=== PATIENT | female | born 1995 | race Two or more races ===

== ENCOUNTER → 2020-05-27 17:26 | Outpatient (CLI) | payer OTHER, SELFPAY ==
[2020-05-27 18:27] LABS: HCG,Quantitative 48 mIU/ml (0-5.42)
== END ==
PROVIDERS: Visit Provider Obstetrics & Gynecology
DX: Z32.00 Encounter for pregnancy test, result unknown (principal)
CPT/HCPCS: 36415; 84702

== ENCOUNTER → 2020-08-13 11:25 | Outpatient (CLI) | payer OTHER, SELFPAY ==
[2020-08-13 12:21] LABS: HCG,Quantitative 785 mIU/ml (0-5.42)
== END ==
PROVIDERS: Visit Provider Obstetrics & Gynecology
DX: Z32.00 Encounter for pregnancy test, result unknown (principal)
CPT/HCPCS: 36415; 84702

== ENCOUNTER → 2020-08-15 10:06 | Outpatient (CLI) | payer OTHER, SELFPAY ==
[2020-08-15 11:16] LABS: HCG,Quantitative 1880 mIU/ml (0-5.42)
== END ==
PROVIDERS: Visit Provider Obstetrics & Gynecology
DX: Z34.90 Encounter for supervision of normal pregnancy, unspecified, unspecified trimester (principal)
CPT/HCPCS: 36415; 84702

== ENCOUNTER → 2020-08-23 15:18 | Outpatient (CLI) | payer OTHER, SELFPAY ==
--- NOTE | 2020-08-23 15:23 | US_ITS ---
PROCEDURE: US OB <= 14 WEEKS FETUS CLINICAL INDICATION: dates Early Ob ultrasound, evaluate for dates COMPARISON: No exams were available for comparison FINDINGS: There is a intrauterine gestational sac which measures 13 by 15 mm. No pole or yolk sac apparent. There is a 2 cm left corpus luteum cyst. No cul-de-sac fluid apparent. IMPRESSION: Empty gestational sac. No pole identified. Cannot confirm viability. Please correlate with beta HCG and follow-up ultrasound Dictated by: Enrique Perez MD 08/23/2020 16:36 Enrique Perez MD in [facility] 08/23/2020 16:36
== END ==
LOC: RAD 15:22
PROVIDERS: PCP Family Medicine; Visit Provider Obstetrics & Gynecology
DX: Z34.90 Encounter for supervision of normal pregnancy, unspecified, unspecified trimester (principal)
CPT/HCPCS: 76801

== ENCOUNTER → 2020-08-28 17:17 | Outpatient (CLI) | payer OTHER, SELFPAY | LOC: LAB 17:19 | PROVIDERS: Visit Provider Obstetrics & Gynecology | DX: Z34.90 Encounter for supervision of normal pregnancy, unspecified, unspecified trimester (principal) | CPT/HCPCS: 36415; 84702 ==

== ENCOUNTER → 2020-09-03 14:38 | Outpatient (CLI) | payer BC, SELFPAY ==
--- NOTE | 2020-09-03 14:42 | US_ITS ---
PROCEDURE: US OB TRANSVAGINAL CLINICAL INDICATION: Dates COMPARISON: US US OB <= 14 WEEKS FETUS from 08/23/2020 FINDINGS: An intrauterine gestational sac is present with a pole with a crown-rump length of 0.22cm correlating to gestational age of 6weeks 1day. No cardiac activity evident at this time. It could be too early to see cardiac activity. Cannot confirm viability however, a yolk sac and pole has developed since the previous exam. There is a 2 cm left corpus luteum cyst. IMPRESSION: Gestational sac with pole now visible but no cardiac activity. Continued follow-up suggested. Estimated due date by Ultrasound is 04/28/2021 Dictated by: Enrique Perez MD 09/03/2020 19:35 Enrique Perez MD in [facility] 09/03/2020 19:35
== END ==
LOC: RAD 14:40
PROVIDERS: PCP Family Medicine; Visit Provider Obstetrics & Gynecology
DX: Z34.90 Encounter for supervision of normal pregnancy, unspecified, unspecified trimester (principal)
CPT/HCPCS: 76817

== ENCOUNTER 2020-10-07 13:35 | Emergency (ER) | payer BC, MEDICAID, SELFPAY ==
[2020-10-07 13:37] VITALS: BP 125/52; PULSE 64; RESP 16; TEMP 36.6; O2SAT 98; BMI 30.1
[2020-10-07 14:01] LABS: Basophils % 0.3 % (0.1-2.0); Eosinophils # 0.1 K/mm3 (0.0-0.4); Hematocrit 41.5 % (37.0-47.0); Hemoglobin 13.4 g/dL (12.2-16.2); Lymphocytes # 1.6 K/mm3 (0.7-4.5); Lymphocytes % 21.9 % (10-50); Mean Corpuscular HGB Conc 32.3 g/dL (31.8-35.4); Mean Corpuscular Hemoglobin 25.4 pg (27.0-31.2); Mean Corpuscular Volume 78.6 fl (81-99); Mean Platelet Volume 8.5 fl (7.4-10.4); Monocytes # 0.3 K/mm3 (0.1-1.0); Monocytes % 4.2 % (1.7-9.3); Neutrophils # 5.3 K/mm3 (1.8-7.8); Neutrophils % 72.7 % (37.0-80.0); Platelet Count 197 K/mm3 (142-424); Red Blood Count 5.28 M/mm3 (4.20-5.40); Red Cell Distribution Width 13.8 % (11.5-17.5); White Blood Count 7.2 K/mm3 (4.8-10.8)
[2020-10-07 14:08] LABS: Alanine Aminotransferase 17 U/L (12-78); Albumin Level 4.9 g/dl (3.5-5.0); Albumin/Globulin Ratio 1.4 (1.1-1.8); Alkaline Phosphatase 56 U/L (38-126); Anion Gap 12.5 mEq/L (5-15); Aspartate Amino Transferase 33 U/L (14-36); Bilirubin,Total 0.3 mg/dl (0.2-1.3); Blood Urea Nitrogen 7 mg/dl (7-17); Carbon Dioxide 26 mmol/L (22.0-30.0); Chloride 104 mmol/L (98-107); Creatinine Clearance Estimated 178 mL/min (50-200); Estimated Glomerular Filt Rate 124 ml/min (>60); GFR (African American) 150 ML/MIN (>60); Globulin 3.5 g/dL (1.3-3.2); Glucose 104 mg/dl (74-100); Potassium 3.5 mmoL/L (3.5-5.1); Sodium 139 mmol/L (136-145); Total Protein,Serum 8.4 g/dl (6.3-8.2)
--- NOTE | 2020-10-07 14:38 | US_ITS ---
PROCEDURE: US TRANSVAGINAL CLINICAL INDICATION: bleeding [id number] susp spontaneous 09/10 COMPARISON: US US OB TRANSVAGINAL from 09/03/2020 FINDINGS: UTERUS: 10cm x 6cmx 5cm LEFT OVARY: [id number] with a volume of 7.7ml. RIGHT OVARY: [id number] with a volume of 10.1ml. The uterus is enlarged. Anechoic areas present in the fundus of the uterus containing some internal echoes. Cannot exclude the possibility of retained products of conception. The adnexa are unremarkable. No cul-de-sac fluid evident. The anechoic region in the uterus measures approximately 2 x 2 x 0.8 cm. IMPRESSION: Anechoic area in the fundus of the uterus with some internal echoes and questionable septation which could be due to retained products of conception. Dictated by: Enrique Perez MD 10/07/2020 16:11 Enrique Perez MD in [facility] 10/07/2020 16:11
[2020-10-07 15:01] LABS: Microscopic, Urine URINE MICROSCOPIC (MICROSCOPIC)
[2020-10-07 15:12] LABS: Appearance,Urine CLEAR (Clear); Bilirubin,Urine Negative (Negative); Blood, Urine 3+ (Negative); Color,Urine YELLOW (Yellow); Glucose,Urine (UA) Negative (Negative); Ketones,Urine Negative (Negative); Leukocyte Esterase,Urine Negative (Negative); Nitrate,Urine Negative (Negative); PH,Urine 6.5 (5.0-8.5); Protein,Urine Negative (Negative); Specific Gravity, Urine 1.025 (1.005-1.030); Urobilinogen,Urine 0.2 EU/dl (0.2)
[2020-10-07 15:20] LABS: Urine Pregnancy, HCG Qual. Positive (Negative)
[2020-10-07 15:21] LABS: HCG,Quantitative 419 mIU/ml (0-5.42)
[2020-10-07 15:41] LABS: Bacteria,Urine 1+ /lpf; WBC,Urine 50-100 #/hpf (0-3)
--- NOTE | 2020-10-07 16:15 | HMH.EDUROGF ---
ED Disposition Clinical Impression: Missed with demise before 20 completed weeks of gestation, Vaginal bleeding Disposition: Home, Self-Care Condition on Discharge: Good Instructions: DI for Vaginal Bleeding, DI for Miscarriage Additional Instructions: Follow up with Dr. Stevenson in clinic tomorrow at 10:30 AM and return to the ED for any new or worsening symptoms. Referrals: Lawrence Hernandez [Primary Care Provider] - Time of Disposition: 17:01 - Critical Care Critical Care Time: No Attestation: On 10/07/20, the high probability of a clinically significant, sudden or life threatening deterioration of the following system(s) required my full and direct attention, intervention and personal management. The time I documented below is in addition to time spent performing reported procedures but includes the following listed in this critical care notation. Medical Decision Making - Medical Records Medical records reviewed: Yes: I reviewed the patient's medical records. - Aakash Inquiry Pt receiving controlled substance: No Vital Signs: 10/07/20 13:37 Temperature 98 F Temperature Source Oral Pulse Rate [Radial] 64 Respiratory Rate 16 Blood Pressure [Right Arm] 125/52 L Blood Pressure Mean [Right Arm] 76 Blood Pressure Position [Right Arm] Sitting 02 Sat by Pulse Oximetry 98 Oxygen Delivery Method Room Air - Lab Data Lab Results 10/07/20 13:52: WBC 7.2, RBC 5.28, Hgb 13.4, Hct 41.5, MCV 78.6 L, MCH 25.4 L, MCHC 32.3, RDW 13.8, Plt Count 197, MPV 8.5, Neut % (Auto) 72.7, Lymph % (Auto) 21.9, [place] % (Auto) 4.2, Eos % (Auto) 1.0, Baso % (Auto) 0.3, Neut # (Auto) 5.3, Lymph # (Auto) 1.6, [place] # (Auto) 0.3, Eos # (Auto) 0.1, Baso # (Auto) 0.0 10/07/20 13:52: Sodium 139, Potassium 3.5, Chloride 104, Carbon Dioxide 26, Anion Gap 12.5, BUN 7, Creatinine 0.60, Estimated Creat Clear 178, Estimated GFR 124, Est GFR ( Amer) 150, Glucose 104 H, Calcium 10.0, Total Bilirubin 0.3, AST 33, ALT 17, Alkaline Phosphatase 56, Total Protein 8.4 H, Albumin 4.9, Globulin 3.5 H, Albumin/Globulin Ratio 1.4 10/07/20 13:52: HCG, Quant 419 H 10/07/20 14:50: Urine Color Yellow, Urine Appearance Clear, Urine pH 6.5, Ur Specific [place] 1.025, Urine Protein Negative, Urine Glucose (UA) Negative, Urine Ketones Negative, Urine Blood 3+, Urine Nitrate Negative, Urine Bilirubin Negative, Urine Urobilinogen 0.2, Ur Leukocyte Esterase Negative, Urine RBC 3-5, Urine WBC 50-100, Ur Squamous Epith Cells 5-10, Urine Bacteria 1+ 10/07/20 14:50: Urine HCG, Qual Positive 10/07/20 14:50: Blood Type A Positive, Antibody Screen Negative Result diagrams: 10/07/20 13:52 10/07/20 13:52 Orders (Tests/Meds): ED MEDICATIONS Discontinued Medications Generic Name Dose Route Start Last Admin Trade Name Freq PRN Reason Stop Dose Admin Rho Immune Globulin 1,500 unit 10/07/20 16:43 Rho(D) Immune Globulin 1,500 Unit Syringe IM 10/07/20 16:44 ONCE ONE ORDERS Category Date Time Status Urine Culture Stat Micro 10/07/20 14:50 Received Medical Decision Narrative: 25-year-old female who presents with intermittent vaginal bleeding pretty much daily since a suspected miscarriage on 09/10. She is having intermittent cramping but no other abdominal pain has not had fever chills or body aches is well-appearing and nontoxic. Beta-hCG is elevated to 419 and she is Rh- she will be given RhoGam. Pelvic exam demonstrates a closed cervical os with clot mild mild bleeding and evidence of fibrous tissue. Ultrasound demonstrates no adnexal abnormalities but does show a fluid collection in the uterus. Remainder of the labs are within normal limits. Patient will be consulted OB for evaluation for possible D&C versus outpatient management. Pt will be followed with Dr. Stevenson tomorrow at 10:30. US concerning for retained products of conception. Pt well appearing and stable on discharge. Female Urogenital HPI - General Chief complaint: Vagin
--- NOTE | 2020-10-07 16:39 | PC.NURSE ---
dR Matti PEDERSON.
--- NOTE | 2020-10-07 16:52 | PC.NURSE ---
Dr brooks returned call
--- NOTE | 2020-10-07 17:24 | PC.NURSE ---
Per lab pt does not need the rogam shot. Pt is A+
[2020-10-07 17:27] VITALS: BP 156/78; PULSE 78; RESP 16; TEMP 36.6; O2SAT 98
== END 2020-10-07 17:28 | disposition home or self-care (01) ==
PROVIDERS: Emergency Provider Student in an Organized Health Care Education/Training Program; PCP Family Medicine
DX: O02.1 Missed abortion (principal)
CPT/HCPCS: 36415; 76830; 80053; 81001; 81025; 84702; 85025; 86850; 87086; 99283

== ENCOUNTER → 2020-10-09 15:50 | Outpatient (CLI) | payer BC, MEDICAID, SELFPAY ==
[2020-10-09 17:47] LABS: HCG,Quantitative 275 mIU/ml (0-5.42)
== END ==
PROVIDERS: Visit Provider Obstetrics & Gynecology
DX: O02.1 Missed abortion (principal)
CPT/HCPCS: 36415; 84702

== ENCOUNTER → 2020-12-09 10:21 | Outpatient (CLI) | payer BC, SELFPAY ==
[2020-12-09 11:26] LABS: HCG,Quantitative 25 mIU/ml (0-5.42)
== END ==
PROVIDERS: Visit Provider Obstetrics & Gynecology
DX: Z32.01 Encounter for pregnancy test, result positive (principal)
CPT/HCPCS: 36415; 84702

== ENCOUNTER → 2020-12-18 12:10 | Outpatient (CLI) | payer BC, SELFPAY ==
[2020-12-18 12:51] LABS: Basophils # 0.1 K/mm3 (0-0.2); Basophils % 0.9 % (0.1-2.0); Eosinophils # 0.1 K/mm3 (0.0-0.4); Hematocrit 39.7 % (37.0-47.0); Hemoglobin 13.5 g/dL (12.2-16.2); Lymphocytes # 1.7 K/mm3 (0.7-4.5); Lymphocytes % 31.4 % (10-50); Mean Corpuscular Hemoglobin 25.4 pg (27.0-31.2); Mean Corpuscular Volume 74.8 fl (81-99); Mean Platelet Volume 8.8 fl (7.4-10.4); Monocytes # 0.3 K/mm3 (0.1-1.0); Monocytes % 5.9 % (1.7-9.3); Neutrophils # 3.2 K/mm3 (1.8-7.8); Neutrophils % 59.8 % (37.0-80.0); Platelet Count 204 K/mm3 (142-424); Red Blood Count 5.31 M/mm3 (4.20-5.40); White Blood Count 5.3 K/mm3 (4.8-10.8)
[2020-12-18 13:52] LABS: HCG,Quantitative 12 mIU/ml (0-5.42)
== END ==
PROVIDERS: Visit Provider Obstetrics & Gynecology
DX: Z20.822 Contact with and (suspected) exposure to COVID-19 (principal)
CPT/HCPCS: 36415; 84702; 85025; 85461; J2790; U0003

== ENCOUNTER → 2020-12-19 10:07 | Outpatient (CLI) | payer BC, SELFPAY ==
--- NOTE | 2020-12-19 10:10 | US_ITS ---
PROCEDURE: US OB TRANSVAGINAL CLINICAL INDICATION: Missed Decreasing beta HCGs COMPARISON: US US OB TRANSVAGINAL from 09/03/2020 US US TRANSVAGINAL from 10/07/2020 FINDINGS: There is fluid present within the endometrial canal. No yolk sac or pole is identified. The endometrium is upper limits of normal measuring 10 mm in total thickness without the thickness of the fluid considered. Uterus is otherwise unremarkable. The left ovary has a polycystic ovarian appearance measuring 2.7 x 2.6 cm. There is a simple appearing cyst of the right ovary measuring 3 x 2.7 cm. No cul-de-sac fluid is evident. IMPRESSION: No intrauterine apparent. Fluid is present within the endometrium with no evidence of yolk sac or pole. The fluid within the endometrial cavity could be related to a gestational sac however it does not have a normal appearance. Blighted ovum or missed miscarriage is a consideration. Please correlate with patient's beta HCG levels. 3 cm right ovarian cyst with polycystic appearance of the left ovary Dictated by: Enrique Perez MD 12/19/2020 11:37 Enrique Perez MD in [place] 12/19/2020 11:37
== END ==
PROVIDERS: PCP Family Medicine; Visit Provider Obstetrics & Gynecology
DX: O02.1 Missed abortion (principal)
CPT/HCPCS: 76817

== ENCOUNTER 2020-12-20 10:01 | Day surgery (SDC) | payer BC, SELFPAY ==
[2020-12-11 14:13] VITALS: BMI 29.4
[2020-12-20] VITALS (9 sets, daily range): BP systolic 104–148; BP diastolic 49–82; PULSE 61–78; RESP 14–18; TEMP 36.2–36.9; O2SAT 96–100
--- NOTE | 2020-12-20 12:43 | HMH.OPNOTE ---
Date of procedure: 12/20/20 Pre-op Diagnosis:: Incomplete Post-op Diagnosis:: same Procedure performed:: Suction Dilation and Curettage Surgeon:: Gena Stevenson MD SALES OFFICER:: Bill Mtz Anesthesia: GETA Estimated blood loss (mL): 25 Operative findings:: small amount of retained tissue in uterus Operative note:: The patient was taken to the OR and general anesthesia administered without difficulty. She was prepped and draped in lithotomy position. Vivas retractors were used to visualize the cervix and a single tooth tenaculum placed on the anterior lip of the cervix. The cervix was passively dilated until it could accomodate the suction curette. A size # 7 curved curette was used to evacuate the contents of the uterus. A small amount of products of conception were evacuated with the suction curette. Sharp curettage was used to ensure that no products remained within the uterine cavity. All instruments were then removed from the patients vagina, she was taken out of lithotomy position, awakened from anesthesia and taken to the PACU in stable condition. EBL: 25cc Condition: stable Disposition: PACU Specimens:: products of conception Complications:: none
== END 2020-12-20 13:07 | disposition home or self-care (01) ==
PROVIDERS: PCP Family Medicine; Visit Provider Obstetrics & Gynecology
PROC: (CPT 59812; principal; 2020-12-20 11:00)
DX: O03.4 Incomplete spontaneous abortion without complication (principal)
CPT/HCPCS: 59812; 96374; J2405

== ENCOUNTER → 2022-05-21 11:45 | Outpatient (CLI) | payer BC, SELFPAY ==
[2022-05-21 16:22] LABS: Amphetamine/Metha Screen,Urine Negative ng/ml (<1000)
[2022-05-21 16:23] LABS: Barbiturates Screen,Urine Negative ng/ml (<200)
[2022-05-21 16:24] LABS: Benzodiazepines Screen,Urine Negative ng/ml (<200); Cannabinoid Screen,Urine Positive ng/ml (<50)
[2022-05-21 16:25] LABS: Cocaine Screen,Urine Negative ng/ml (<300)
[2022-05-21 16:26] LABS: Methadone Screen,Urine Negative ng/ml (<300)
[2022-05-21 16:35] LABS: Opiate Screen,Urine Negative ng/ml (<300)
[2022-05-21 16:36] LABS: Phencyclidine Screen,Urine Negative ng/ml (<25)
== END ==
PROVIDERS: Visit Provider Obstetrics & Gynecology
DX: Z34.90 Encounter for supervision of normal pregnancy, unspecified, unspecified trimester (principal)
CPT/HCPCS: 80305; 87086

== ENCOUNTER → 2022-06-30 11:25 | Outpatient (CLI) | payer MEDICAID, SELFPAY ==
[2022-06-30 12:17] LABS: Basophils % 0.4 % (0.1-2.0); Eosinophils # 0.1 K/mm3 (0.0-0.4); Eosinophils % 1.1 % (0.1-12.0); Hematocrit 35.7 % (37.0-47.0); Lymphocytes # 1.4 K/mm3 (0.7-4.5); Lymphocytes % 13.7 % (10-50); Mean Corpuscular HGB Conc 33.7 g/dL (31.8-35.4); Mean Corpuscular Volume 74.2 fl (81-99); Mean Platelet Volume 8.6 fl (7.4-10.4); Monocytes # 0.5 K/mm3 (0.1-1.0); Monocytes % 4.5 % (1.7-9.3); Neutrophils # 8.4 K/mm3 (1.8-7.8); Neutrophils % 80.3 % (37.0-80.0); Platelet Count 252 K/mm3 (142-424); Red Blood Count 4.81 M/mm3 (4.20-5.40); Red Cell Distribution Width 14.9 % (11.5-17.5); White Blood Count 10.5 K/mm3 (4.8-10.8)
[2022-07-01 10:37] LABS: HIV Screen 4th Generation wRfx Non Reactive (Non Reactive); Rubella Antibodies, IgG 2.43 index (Immune >0.99)
[2022-07-04 22:23] LABS: Hepatitis B Surface Antigen NEGATIVE; Hepatitis C Antibody <0.1
[2022-07-04 22:24] LABS: Rapid Plasma Reagin Ab Titer NON REACTIVE
== END ==
PROVIDERS: PCP Family Medicine; Visit Provider Obstetrics & Gynecology
DX: Z34.90 Encounter for supervision of normal pregnancy, unspecified, unspecified trimester (principal)
CPT/HCPCS: 36415; 85025; 86593; 86703; 86762; 86850; 87340; 87380; G0432

== ENCOUNTER → 2022-08-24 14:41 | Outpatient (CLI) | payer MEDICAID, SELFPAY ==
--- NOTE | 2022-08-24 14:45 | US_ITS ---
FINAL REPORT CLINICAL HISTORY: 20 week anatomy scan FINDINGS: There is a single live intrauterine gestation. Presentation is breech. The cervix is closed and measures 3.9. Placenta is posterior, grade 1. heart rate is 142 beats per minute movement is noted. Three-vessel cord with satisfactory umbilical cord insertion. Four-chamber heart is noted. brain and ventricles are unremarkable. Chest and diaphragm are unremarkable. ABDOMEN: Both kidneys are unremarkable. Stomach is unremarkable. SPINE: No anomalies identified. Both arms and legs noted. AMNIOTIC FLUID: Appropriate amount. MEASUREMENTS: ULTRASOUND AGE: 20 weeks 3 days. GESTATION AGE: 20 weeks 3 days. ESTIMATED WEIGHT: 350 g GROWTH PERCENTILE: 42 % BPD: 4.77 cm corresponding to 20 weeks 3 days. OFD: 6.00 cm corresponding to 20 weeks 3 days. HC: 17.03 cm corresponding to 19 weeks 5 days. AC: 15.38 cm corresponding to 20 weeks 5 days. FL: 3.30 cm corresponding to 20 weeks 3 days. CEREBELLUM: 2.01 cm corresponding to 20 weeks 4 days. HUMERUS: 3.22 cm corresponding to 20 weeks 6 days. HC/AC: 1.11 CI: 80% FL/BPD: 69% FL/AC: 21% IMPRESSION: Single living IUP with an ultrasound age of 20 weeks 3 days. Reviewed, Interpreted and Dictated by Abelardo Raman III, MD Transcribed by Betzy Bueno Authenticated and [facility]
== END ==
PROVIDERS: PCP Family Medicine; Visit Provider Obstetrics & Gynecology
DX: Z34.90 Encounter for supervision of normal pregnancy, unspecified, unspecified trimester (principal); Z3A.20 20 weeks gestation of pregnancy
CPT/HCPCS: 76811

== ENCOUNTER → 2022-10-07 08:26 | Outpatient (CLI) | payer MEDICAID, SELFPAY ==
[2022-10-07 08:44] LABS: Basophils % 0.3 % (0.1-2.0); Eosinophils # 0.1 K/mm3 (0.0-0.4); Eosinophils % 1.1 % (0.1-12.0); Hematocrit 35.4 % (37.0-47.0); Hemoglobin 11.5 g/dL (12.2-16.2); Lymphocytes # 1.5 K/mm3 (0.7-4.5); Lymphocytes % 16.4 % (10-50); Mean Corpuscular HGB Conc 32.6 g/dL (31.8-35.4); Mean Corpuscular Hemoglobin 24.2 pg (27.0-31.2); Mean Corpuscular Volume 74.2 fl (81-99); Mean Platelet Volume 9.2 fl (7.4-10.4); Monocytes # 0.5 K/mm3 (0.1-1.0); Neutrophils # 7.3 K/mm3 (1.8-7.8); Neutrophils % 77.3 % (37.0-80.0); Platelet Count 244 K/mm3 (142-424); Red Blood Count 4.77 M/mm3 (4.20-5.40); Red Cell Distribution Width 14.8 % (11.5-17.5); White Blood Count 9.5 K/mm3 (4.8-10.8)
[2022-10-07 10:19] LABS: Glucose,Fasting 80 mg/dl (74-100)
[2022-10-07 10:41] LABS: Glucose 1 Hour 99 mg/dL (74-100)
== END ==
PROVIDERS: PCP Family Medicine; Visit Provider Obstetrics & Gynecology
DX: Z34.90 Encounter for supervision of normal pregnancy, unspecified, unspecified trimester (principal); Z3A.21 21 weeks gestation of pregnancy
CPT/HCPCS: 36415; 82951; 85025

== ENCOUNTER 2022-10-20 08:50 | Outpatient (CLI) | payer MEDICAID, SELFPAY ==
[2022-10-20 09:11] VITALS: BMI 34.5
[2022-10-20 09:20] VITALS: BP 144/74; PULSE 104; RESP 18; TEMP 36.9; O2SAT 98; BMI 34.5
[2022-10-20 09:36] LABS: Microscopic, Urine URINE MICROSCOPIC (MICROSCOPIC)
[2022-10-20 10:08] LABS: Appearance,Urine CLEAR (Clear); Bilirubin,Urine Negative (Negative); Blood, Urine Negative (Negative); Color,Urine YELLOW (Yellow); Glucose,Urine (UA) Negative (Negative); Ketones,Urine Negative (Negative); Leukocyte Esterase,Urine Negative (Negative); Nitrate,Urine Negative (Negative); PH,Urine 7.5 (5.0-8.5); Protein,Urine Negative (Negative)
[2022-10-20 10:19] LABS: Amphetamine/Metha Screen,Urine Negative ng/ml (<1000); Barbiturates Screen,Urine Negative ng/ml (<200)
[2022-10-20 10:20] LABS: Benzodiazepines Screen,Urine Negative ng/ml (<200)
[2022-10-20 10:23] LABS: Cannabinoid Screen,Urine Negative ng/ml (<50); Cocaine Screen,Urine Negative ng/ml (<300)
[2022-10-20 10:24] LABS: Methadone Screen,Urine Negative ng/ml (<300)
[2022-10-20 10:25] LABS: Opiate Screen,Urine Negative ng/ml (<300); Phencyclidine Screen,Urine Negative ng/ml (<25)
[2022-10-20 10:28] LABS: Bacteria,Urine Trace /lpf; Squamous Epithelial Cell,Urine Occasional #/hpf (0-5)
== END 2022-10-20 10:45 | disposition home or self-care (01) ==
LOC: OBOUT 08:51 → OB 08:51
PROVIDERS: PCP Family Medicine; Visit Provider Nurse Practitioner Obstetrics & Gynecology
DX: O47.03 False labor before 37 completed weeks of gestation, third trimester (principal); Z3A.28 28 weeks gestation of pregnancy
CPT/HCPCS: 59025; 80305; 81001; 87086; G0463

== ENCOUNTER → 2022-11-19 14:03 | Outpatient (CLI) | payer MEDICAID, SELFPAY ==
--- NOTE | 2022-11-19 14:03 | US_ITS ---
PROCEDURE: US OB BIOPHYSICAL PROFILE CLINICAL INDICATION: sga COMPARISON: 20 week anatomical scan. FINDINGS: From her established due date she is 32weeks 6days. The following parameters are obtained: Average ultrasound age is 33weeks 0 days. Estimated due date by ultrasound is 01/07/2023. Estimated weight is 2094 grams, 4 lb 9.87oz. 44percentile. The fetus was initially in the cephalic presentation and then turned to breech presentation towards the end of the exam. heart rate: 147bpm bpm. BPD: 32weeks 3days OFD: 32weeks 3days HC: 32 weeks 5 days AC: 33 weeks 4 days FL: 32 weeks 2 days HC/AC: 1 Cephalic index: 0.79 FL/BPD: 0.75 FL/AC: 0.21 Amniotic fluid index: 16.74cm Qualitative AFV: 2 breathing movements: 2 Gross body movements: 2 Tone: 2 Biophysical profile score: 8 Doppler evaluation of the umbilical artery: SD ratio: 2.78 Resistive index: 0.64 No obvious anomalies evident.Kidneys, three-vessel cord, bladder, stomach appear normal. Placenta: Posterior/fundal, grade 1 Cervix: 3.4 cm IMPRESSION: 1. Fetus initially in the cephalic presentation with change to breech presentation during the exam. The placenta is posterior/fundal grade 1 2. Fetus has shown good interval growth and size is 44 percentile. 3. The fluid is within normal limits. 4. Biophysical profile is 8/8 with good movement and breathing movement seen. 5. SD ratio is normal. 6. Limited anatomical scan appears normal. Dictated by: Matt Sanchez MD 11/20/2022 09:40 Matt Sanchez MD in [place] 11/20/2022 09:40
== END ==
PROVIDERS: PCP Family Medicine; Visit Provider Obstetrics & Gynecology
DX: O36.5990 Maternal care for other known or suspected poor fetal growth, unspecified trimester, not applicable or unspecified (principal); Z3A.32 32 weeks gestation of pregnancy
CPT/HCPCS: 76811; 76819; 76820

== ENCOUNTER 2022-12-05 20:58 | Outpatient (CLI) | payer MEDICAID, SELFPAY ==
[2022-12-05 21:15] VITALS: BP 131/67; PULSE 92; RESP 18; TEMP 36.6; O2SAT 98; BMI 36.5
[2022-12-05 21:48] VITALS: BMI 36.5
[2022-12-05 21:55] LABS: Appearance,Urine CLEAR (Clear); Bilirubin,Urine Negative (Negative); Blood, Urine TRACE-I (Negative); Color,Urine YELLOW (Yellow); Glucose,Urine (UA) Negative (Negative); Ketones,Urine Negative (Negative); Leukocyte Esterase,Urine Negative (Negative); Microscopic, Urine URINE MICROSCOPIC (MICROSCOPIC); Nitrate,Urine Negative (Negative); PH,Urine 7.5 (5.0-8.5); Protein,Urine Negative (Negative); Urobilinogen,Urine 0.2 EU/dl (0.2)
[2022-12-05 22:07] LABS: Barbiturates Screen,Urine Negative ng/ml (<200); Benzodiazepines Screen,Urine Negative ng/ml (<200)
[2022-12-05 22:08] LABS: Amphetamine/Metha Screen,Urine Negative ng/ml (<1000)
[2022-12-05 22:09] LABS: Cannabinoid Screen,Urine Negative ng/ml (<50); Cocaine Screen,Urine Negative ng/ml (<300)
[2022-12-05 22:10] LABS: Methadone Screen,Urine Negative ng/ml (<300)
[2022-12-05 22:11] LABS: Bacteria,Urine 1+ /lpf; Opiate Screen,Urine Negative ng/ml (<300); Phencyclidine Screen,Urine Negative ng/ml (<25); RBC,Urine Occasional #/hpf (0-3)
[2022-12-05 22:25] LABS: Coronavirus 19, PCR Not Detected (NotDetected); Influenza A, PCR Not Detected (NotDetected); Influenza B, PCR Not Detected (NotDetected)
[2022-12-05 22:27] LABS: Basophils % 0.3 % (0.1-2.0); Eosinophils # 0.1 K/mm3 (0.0-0.4); Hematocrit 31.5 % (37.0-47.0); Hemoglobin 10.2 g/dL (12.2-16.2); Lymphocytes # 2.8 K/mm3 (0.7-4.5); Lymphocytes % 21.7 % (10-50); Mean Corpuscular HGB Conc 32.4 g/dL (31.8-35.4); Mean Corpuscular Hemoglobin 21.1 pg (27.0-31.2); Mean Corpuscular Volume 65.1 fl (81-99); Mean Platelet Volume 9.4 fl (7.4-10.4); Monocytes # 0.8 K/mm3 (0.1-1.0); Monocytes % 6.1 % (1.7-9.3); Neutrophils # 9.1 K/mm3 (1.8-7.8); Neutrophils % 70.8 % (37.0-80.0); Platelet Count 242 K/mm3 (142-424); Red Blood Count 4.84 M/mm3 (4.20-5.40); Red Cell Distribution Width 15.4 % (11.5-17.5); White Blood Count 12.8 K/mm3 (4.8-10.8)
[2022-12-05 22:31] LABS: Chloride 103 mmol/L (98-107)
[2022-12-05 22:32] LABS: Potassium 3.6 mmoL/L (3.5-5.1); Sodium 136 mmol/L (136-145)
[2022-12-05 22:34] LABS: Alanine Aminotransferase 13 U/L (12-78); Alkaline Phosphatase 120 U/L (38-126); Aspartate Amino Transferase 31 U/L (14-36); Bilirubin,Total 0.2 mg/dl (0.2-1.3); Blood Urea Nitrogen 9 mg/dl (7-17); Creatinine Clearance Estimated 211 mL/min (50-200); Estimated Glomerular Filt Rate 122 ml/min (>60); GFR (African American) 147 ML/MIN (>60)
[2022-12-05 22:35] LABS: Albumin Level 3.5 g/dl (3.5-5.0); Albumin/Globulin Ratio 0.9 (1.1-1.8); Anion Gap 14.6 mEq/L (5-15); Calcium 8.7 mg/dl (8.4-10.2); Carbon Dioxide 22 mmol/L (22.0-30.0); Glucose 71 mg/dl (74-100); Total Protein,Serum 7.5 g/dl (6.3-8.2)
== END 2022-12-05 23:08 | disposition home or self-care (01) ==
LOC: OBOUT 21:03 → OB 21:04
PROVIDERS: PCP Family Medicine; Visit Provider Nurse Practitioner Obstetrics & Gynecology
DX: O26.893 Other specified pregnancy related conditions, third trimester (principal); Z3A.35 35 weeks gestation of pregnancy; R07.9 Chest pain, unspecified; R51.9 Headache, unspecified; R06.02 Shortness of breath
CPT/HCPCS: 59025; 80053; 80305; 81001; 85025; 87635; 87636; 96365; C9803; G0463; U0003; U0005

== ENCOUNTER → 2022-12-17 10:00 | Outpatient (CLI) | payer MEDICAID, SELFPAY | PROVIDERS: Visit Provider Obstetrics & Gynecology | DX: Z34.93 Encounter for supervision of normal pregnancy, unspecified, third trimester (principal); Z3A.36 36 weeks gestation of pregnancy | CPT/HCPCS: 86403 ==

== ENCOUNTER 2022-12-25 04:56 | Inpatient (IN) | payer MEDICAID, SELFPAY ==
[2022-12-25] VITALS (8 sets, daily range): BP systolic 124–146; BP diastolic 62–93; PULSE 78–93; RESP 14–18; TEMP 36.6–36.8; O2SAT 98–100; BMI 37.0
[2022-12-25 05:56] LABS: Coronavirus 19, PCR Not Detected (NotDetected); Influenza A, PCR Not Detected (NotDetected); Influenza B, PCR Not Detected (NotDetected); Microscopic, Urine URINE MICROSCOPIC (MICROSCOPIC)
[2022-12-25 06:00] LABS: Basophils % 0.3 % (0.1-2.0); Eosinophils # 0.1 K/mm3 (0.0-0.4); Eosinophils % 0.8 % (0.1-12.0); Hematocrit 30.6 % (37.0-47.0); Hemoglobin 9.6 g/dL (12.2-16.2); Lymphocytes # 1.8 K/mm3 (0.7-4.5); Lymphocytes % 18.2 % (10-50); Mean Corpuscular HGB Conc 31.4 g/dL (31.8-35.4); Mean Corpuscular Hemoglobin 20.9 pg (27.0-31.2); Mean Corpuscular Volume 66.4 fl (81-99); Mean Platelet Volume 8.1 fl (7.4-10.4); Monocytes # 0.5 K/mm3 (0.1-1.0); Monocytes % 5.1 % (1.7-9.3); Neutrophils # 7.3 K/mm3 (1.8-7.8); Neutrophils % 75.6 % (37.0-80.0); Platelet Count 207 K/mm3 (142-424); Red Blood Count 4.61 M/mm3 (4.20-5.40); Red Cell Distribution Width 16.5 % (11.5-17.5); White Blood Count 9.7 K/mm3 (4.8-10.8)
[2022-12-25 06:08] LABS: Alanine Aminotransferase 12 U/L (12-78); Albumin Level 3.4 g/dl (3.5-5.0); Albumin/Globulin Ratio 0.9 (1.1-1.8); Alkaline Phosphatase 122 U/L (38-126); Anion Gap 10.2 mEq/L (5-15); Aspartate Amino Transferase 21 U/L (14-36); Blood Urea Nitrogen 13 mg/dl (7-17); Calcium 8.6 mg/dl (8.4-10.2); Carbon Dioxide 22 mmol/L (22.0-30.0); Chloride 109 mmol/L (98-107); Creatinine Clearance Estimated 184 mL/min (50-200); Estimated Glomerular Filt Rate 102 ml/min (>60); GFR (African American) 123 ML/MIN (>60); Globulin 3.6 g/dL (1.3-3.2); Glucose 96 mg/dl (74-100); Potassium 4.2 mmoL/L (3.5-5.1); Sodium 137 mmol/L (136-145)
[2022-12-25 06:12] LABS: Appearance,Urine SL CLOUDY (Clear); Bilirubin,Total 0.1 mg/dl (0.2-1.3); Bilirubin,Urine Negative (Negative); Blood, Urine 1+ (Negative); Color,Urine YELLOW (Yellow); Glucose,Urine (UA) Negative (Negative); Ketones,Urine Negative (Negative); Leukocyte Esterase,Urine 1+ (Negative); Nitrate,Urine Negative (Negative); Protein,Urine TRACE (Negative); Specific Gravity, Urine >= 1.030 (1.005-1.030); Urobilinogen,Urine 0.2 EU/dl (0.2)
[2022-12-25 06:47] LABS: Bacteria,Urine 1+ /lpf
[2022-12-25 07:14] LABS: Barbiturates Screen,Urine Negative ng/ml (<200); Benzodiazepines Screen,Urine Negative ng/ml (<200)
[2022-12-25 07:15] LABS: Amphetamine/Metha Screen,Urine Negative ng/ml (<1000)
[2022-12-25 07:16] LABS: Cannabinoid Screen,Urine Negative ng/ml (<50)
[2022-12-25 07:17] LABS: Cocaine Screen,Urine Negative ng/ml (<300); Methadone Screen,Urine Negative ng/ml (<300)
[2022-12-25 07:18] LABS: Opiate Screen,Urine Negative ng/ml (<300); Phencyclidine Screen,Urine Negative ng/ml (<25)
--- NOTE | 2022-12-25 07:37 | P.PN_ITS ---
[facility] Disclaimer: The information contained in this section may have been updated after the patient was seen, as this information can be updated by other users. Medical History Positive urine drug screen THC Recurrent loss Surgical History Hx of section 02/12/16 Failure to progress, CPD Hx of dilation and curettage Family History Other Diabetes Heart attack Hypertension Social History Smoking Status: Former smoker alcohol intake: never substance use type: denies use and marijuana current occupational status: unemployed Travel in the last 8 weeks: None household members: spouse housing: house current occupational exposures/hazards: No caffeine: Yes [facility] Anesthesia Checklist Patient Identification Patient Identification: Arm Band Structural Data Admitted From: Inpatient Planned Operative Procedure/s: Repeat C/S Consent for Planned Operative Procedure(s) Verified: Yes Verified Documents: Surgical Consent and History and Physical NPO Status Verified Time NPO: 00:00 Additional verifications Anesthesia Reactions: No Hx Blood Transfusions: No Blood Transfusion Reaction: No Airway Assessment C-Spine Mobility Assessed: Yes TMJ Mobility Assessed: Yes Dentition: Good Dentition Neurological Assessment Level of Consciousness: Awake and Alert Anesthesia Plan Anesthesia Risk discussed: Yes Anesthesia Plan: Verified ASA Class: II Anesthesia Type: Spinal (with Bilateral TAP Block)
--- NOTE | 2022-12-25 07:42 | P.CONPHA_ITS ---
Pharmacy Intervention Comments: MEDICATION RECONCILIATION COMPLETED ON PATIENT USING EXTERNAL FILL HISTORY FROM PHARMACY AND LIST FROM SECURITY VEHICLE PATROL OFFICER. -HARVEY MULLINS, BENJAMÍND
--- NOTE | 2022-12-25 07:42 | HMH.PHAINT1 ---
Pharmacy Intervention Comments: MEDICATION RECONCILIATION COMPLETED ON PATIENT USING EXTERNAL FILL HISTORY FROM PHARMACY AND LIST FROM KENO CLERK. -HARVEY MULLINS, BENJAMÍND
--- NOTE | 2022-12-25 07:56 | EXP.HP ---
History of Present Illness *Admission Date: 12/25/22 *Reason for visit:: Scheduled C Section *History of present illness: 27 yo @ 38 0/ scheduled for repeat LTCS OB Hx significant for recurrent loss, and she had a low serum progesterone early in this She was started on vaginal prometrium and aspirin 81mg daily She also has a h/o primary LTCS with previous for failure to progress in labor She expressed a desire for TOLAC for most of this , but after thorough counseling about her potential for success, she decided to schedule repeat LTCS This procedure was moved up to 38 weeks because of polyhydramnios noted at her last visit [facility] Disclaimer: The information contained in this section may have been updated after the patient was seen, as this information can be updated by other users. Medical History Positive urine drug screen THC Recurrent loss Surgical History Hx of section 02/12/16 Failure to progress, CPD Hx of dilation and curettage Family History Other Diabetes Heart attack Hypertension Social History Smoking Status: Former smoker alcohol intake: never substance use type: denies use and marijuana current occupational status: unemployed Travel in the last 8 weeks: None household members: spouse housing: house current occupational exposures/hazards: No caffeine: Yes Review of Systems Constitutional Constitutional: Reports system reviewed and no additional complaints, except as documented and Denies headache(s) ENT Ears, Nose, Mouth, and Throat: Denies headache(s) *Genitourinary Genitourinary: Denies abnormal vaginal bleeding *Neurologic Neurologic: Denies headache(s) and Denies other visual disturbances Meds Home Medications and Allergies Home Medications Medication Instructions Recorded Confirmed Type vits no.130-ferrous fum 1 tab PO DAILY Supplement 10/08/22 12/25/22 History 27 mg iron-folic acid 800 mcg tablet ( Vitamin) hydroxyzine pamoate 25 mg capsule 25 mg PO BIDP PRN anxiety 12/25/22 12/25/22 History (Vistaril) omeprazole magnesium 20 mg 20 mg PO DAILY Acid Reflux 12/25/22 12/25/22 History tablet,delayed release (Prilosec OTC) New Prescriptions to Start Prescriptions: Allergies Allergy/AdvReac Type Severity Reaction Status Date / Time No Known Allergies Allergy Verified 12/17/22 09:24 Exam Data for Last 24 hours Vital signs and Labs for Last 24 Hours: Temp Pulse Resp BP Pulse Ox O2 Del Method 98.3 F 86 18 135/70 98 Room Air 12/25/22 06:19 12/25/22 06:19 12/25/22 06:19 12/25/22 06:19 12/25/22 06:19 12/25/22 06:19 Laboratory Results - last 24 hr 12/25/22 05:40: WBC 9.7, RBC 4.61, Hgb 9.6 L, Hct 30.6 L, MCV 66.4 L, MCH 20.9 L, MCHC 31.4 L, RDW 16.5, Plt Count 207, MPV 8.1, Neut % (Auto) 75.6, Lymph % (Auto) 18.2, [place] % (Auto) 5.1, Eos % (Auto) 0.8, Baso % (Auto) 0.3, Neut # (Auto) 7.3, Lymph # (Auto) 1.8, [place] # (Auto) 0.5, Eos # (Auto) 0.1, Baso # (Auto) 0.0, Sodium 137, Potassium 4.2, Chloride 109 H, Carbon Dioxide 22, Anion Gap 10.2, BUN 13, Creatinine 0.70, Estimated Creat Clear 184, Estimated GFR 102, Est GFR ( Amer) 123, Glucose 96, Calcium 8.6, Total Bilirubin 0.1 L, AST 21, ALT 12, Alkaline Phosphatase 122, Total Protein 7.0, Albumin 3.4 L, Globulin 3.6 H, Albumin/Globulin Ratio 0.9 L, Urine Color Yellow, Urine Appearance Sl cloudy, Urine pH 6.0, Ur Specific [place] >= 1.030, Urine Protein Trace, Urine Glucose (UA) Negative, Urine Ketones Negative, Urine Blood 1+, Urine Nitrate Negative, Urine Bilirubin Negative, Urine Urobilinogen 0.2, Ur Leukocyte Esterase 1+ A, Urine RBC 5-10, Urine WBC 10-20, Ur Squamous
[2022-12-25 08:44] LABS: Cord Blood PH 7.35 (7.35-7.45)
--- NOTE | 2022-12-25 10:50 | SUR.PHASEI ---
Pt did well in PACU. Fundal massage done q10min, fundus noted to be firm and at umbilicus. Denies pain. TAP block performed by Li Mina CRNA, time out performed. Procedure start to stop [id number], pt tolerated well. VSS. QBL noted to be 990.6. Second IV had been started in RAC in case of need d/t greater blood loss. Detailed report called to Chris Robertson RN. Pt transported via bed to room 277 and left in care of primary nurse. Bed locked and in lowest position. Call yari w/in reach.
--- NOTE | 2022-12-25 11:18 | P.OP_ITS ---
Date of procedure: 12/25/22 Pre-op Diagnosis:: 1. 38 0/7 2. Previous C Section 3. Polyhydramnios Post-op Diagnosis:: Same Procedure performed:: LTCS Surgeon:: Gena Stevenson MD General Office Assistant(s):: Craig Aguilera MD EMERGENCY MEDICAL TECH:: Lucien Stuartavani Anesthesia: spinal Estimated blood loss (mL): 600 Operative findings:: Moderate peritoneal adhesions vigorous female in vertex presentation; nuchal cord x 1 clear amniotic fluid Operative note:: The patient was taken to the OR and spinal was administered without difficulty. She was prepped and draped in normal sterile fashion. A pfannenstiel skin incision was made with the scalpel and carried down to the fascia. The fascia was incised in the midline and sharply dissected off the rectus muscles. The muscles were in the midline and the peritoneum was entered sharply and extended bluntly. Peritoneal adhesions to the anterior uterus were sharply and bluntly dissected before the retractor could be placed. Omental adhesions to the uterus were also sharply dissected without complication. The Jose-O self retaining retractor was then placed in the abdomen and a bladder flap was created. The uterus was incised in the lower uterine segment in a transverse fashion and extended bluntly. Amniotomy was performed and copious clear fluid was noted. The infant was delivered in controlled fashion, without complication or shoulder dystocia. A single nuchal cord was reduced after delivery of the head. The was vigorous at and handed to awaiting quality compliance coordinator and nursing staff for evaluation after the umbilical cord was clamped and cut. Cord blood was collected and a cord segment was preserved. The placenta was manually extracted and noted to be intact. The uterus was repaired with 0-vicryl in a running/locked fashion. The abdomen and pelvis were irrigated with sterile water. Venkata was placed over the lower uterine segment and above the hysterotomy repair as hemostasis in the area of adhsion dissection. The peritoneum was closed with 2-0 vicryl in a running fashion. The fascia was closed with #1 vicryl in a running fashion. The subcutaneous fat was closed with 2-0 vicryl in an interrupted fashion. The skin was closed with absorbable chaim. The patient tolerated the procedure well. Sponge, lap, needle and instrument counts were correct x 2. EBL: 600cc. She was taken to PACU awake and in stable condition. Condition: stable Disposition: PACU Specimens:: Placenta, cord blood Complications:: None
--- NOTE | 2022-12-25 12:38 | SUR.OPER ---
0836- viable infant female born at this time 0847- Jaqueline, RT reported cord pH of 7.35. Relayed to VIK IgnacioO
--- NOTE | 2022-12-25 12:41 | EXP.ANES.I ---
[facility] Anesthesia Record Part I Anesthesia Record I Intake, IV Amount: 2,000 Estimated blood loss (mL): 600 Urine output (mL): 800 Blood Products used (#): none Blood Pressure: 146/76 SaO2: 100 Pulse Rate: 83 Respiratory Rate: 16 Temperature: 98.2 F Patient is:: Awake and Stable Stable to PACU at:: 09:50
--- NOTE | 2022-12-25 13:51 | SW/DCPLANNER ---
Addendum entered by Tiffani Machado 12/29/22 09:53: Infant cord screen is NEGATIVE. Original Note: I received referral on this patient regarding: THC use during . Patient tested positive on 05/21/23 and 10/08/22. Patient was negative on 12/18/22 and admission on 12/25/22. urine is also negative. Patient delivered female (Juanita Dewitt) on 12/25/22. 's father (Emil Dewitt 04/12/94) was present at the time of my visit. Patient, Emil, and other child (Jeff Dewitt 02/12/16) will reside at [address] [place] [address]. Patient's contact number is [phone]. No past Social Service involvement per patient. Patient is currently established with [facility] and is not interested in HANDS. Patient stated that she has the following items at home: crib, carseat, clothing, diapers and will be . Patient is expected to discharge home on 12/27/22 pending no setbacks. Per OB nursing staff (Mar[place]) patient is appropriate. Patient has no further needs at this time.
--- NOTE | 2022-12-25 14:16 | P.PNANES_ITS ---
[facility] Anesthesia Record Part II Anesthesia Record Part II Discharge Time: 10:20 Destination: Obstetric PACU nurse assessment reviewed?: Yes Patient Condition:: Good Anesthesia Complications:: None Swallowing reflex intact?: Yes Cyanosis?: No Blood Pressure: 142/93 Pulse Rate: 84 Temperature: 97.9 F Mental Status: Alert & Oriented Pain level:: 0 Nausea and/or vomitting:: None Intake, IV Amount: 0
[2022-12-26 03:58] VITALS: BP 132/75; PULSE 95; RESP 18; TEMP 36.6; O2SAT 100
[2022-12-26 07:28] LABS: Hematocrit 26.6 % (37.0-47.0); Hemoglobin 8.4 g/dL (12.2-16.2)
--- NOTE | 2022-12-26 12:57 | EXP.DC.SUM ---
General Admission date:: 12/25/22 Discharge date: 12/26/22 HPI HPI HPI: 27 yo @ 38 0/7 scheduled for repeat LTCS OB Hx significant for recurrent loss, and she had a low serum progesterone early in this She was started on vaginal prometrium and aspirin 81mg daily She also has a h/o primary LTCS with previous for failure to progress in labor She expressed a desire for TOLAC for most of this , but after thorough counseling about her potential for success, she decided to schedule repeat LTCS This procedure was moved up to 38 weeks because of polyhydramnios noted at her last visit complicated by chronic anemia, with admitting Hgb 9.6 Hospital Course Hospital Course Hospital Course: Postoperative course uncomplicated She requested discharge home on POD #1, which was also approved by Peds She is ambulating and voiding without difficulty She is tolerating a regular diet Lochia has been appropriate She is asymptomatic with [id number] anemia Hgb is 8.4 on POD #1 (9.6 at admission) She was given a dose of IV Venofer before discharge and will continue PO ferrous sulfate after discharge She has absorbable chaim for skin closure Exam Data for Last 24 hours Vital signs and Labs for Last 24 Hours: Temp Pulse Resp BP Pulse Ox O2 Del Method 97.9 F 95 H 18 132/75 100 Room Air 12/26/22 03:58 12/26/22 03:58 12/26/22 03:58 12/26/22 03:58 12/26/22 03:58 12/26/22 03:58 Laboratory Results - last 24 hr 12/26/22 07:15: Hgb 8.4 L, Hct 26.6 L I & O for Last 24 hours: Intake & Output 12/24/22 12/25/22 12/26/22 12/27/22 11:59 11:59 11:59 11:59 Intake Total 1999 / 1999 Output Total 700 / 700 600 / 600 Balance -700 / -700 1400 / 1400 Weight 209 lb Microbiology Reports for the Last 24 Hours: Microbiology 12/25/22 05:40 Urine,Clean Catch Urine Culture - Preliminary NO GROWTH AFTER 24 HOURS Constitutional Constitutional: no acute distress *Routine HEENT Exam Head: Present normocephalic Eye: Absent conjunctival icterus or scleral injection ENT: Present mucous membranes moist *Routine Neck Exam Neck: Present supple *Routine Respiratory Exam Respiratory: Present CTA bilaterally *Routine Cardiovascular Exam Cardiovascular: Present RRR *Routine Abdominal Exam Abdominal: Present soft; Absent tenderness or distended *Routine Rectal Exam Patient deferred: visual exam and digital exam *Routine Exam Patient deferred: external exam Comments: Fundus firm below umbilicus *Routine Extremities Exam Extremities: Present edema *Routine Skin Exam Skin: Present intact and dry Comments: Incision intact without erythema or purulent drainage *Routine Neurological Exam Neurological: Present alert and oriented X3 Routine Psychiatric Exam Psychiatric: Present normal affect; Absent depressed Results Data Completed and Pending Labs on day of discharge: Labs from last 24 hours 12/26/22 07:15 Hgb 8.4 L Hct 26.6 L Preliminary micro results at discharge 12/25/22 05:40 Urine Culture - Preliminary Urine,Clean Catch NO GROWTH AFTER 24 HOURS DS: Diagnosis Discharge Diagnosis (1) 38 weeks gestation of : Status: Acute Code(s): Z3A.38 - 38 weeks gestation of (2) Polyhydramnios affecting in third trimester: Status: Acute Code(s): O40.3XX0 - Polyhydramnios, third trimester, not applicable or unspecified (3) Anemia affecting : Status: Acute Code(s): O99.019 - Anemia complicating , unspecified trimester (4) Hx of section: Status: Acute Code(s): Z98.891 - History of uterine scar from previous surgery Problem details: 02/12/16 Failure to progress, CPD (5) Acute blood loss anemia: Status: Acute Code(s): D62 - Acute posthemorrhagic anemia Meds Home Medication
== END 2022-12-26 14:51 | disposition home or self-care (01) | DRG 788 ==
PROVIDERS: Admitting Provider Obstetrics & Gynecology; PCP Family Medicine; Visit Provider Obstetrics & Gynecology
PROC: 10D00Z1 Extraction of Products of Conception, Low, Open Approach (ICD-10-PCS; CPT 59514; principal; 2022-12-25 07:30)
DX: O34.211 Maternal care for low transverse scar from previous cesarean delivery (principal); Z37.0 Single live birth; Z87.891 Personal history of nicotine dependence; Z3A.38 38 weeks gestation of pregnancy; O40.3XX0 Polyhydramnios, third trimester, not applicable or unspecified; O99.02 Anemia complicating childbirth
CPT/HCPCS: 59514; 36415; 59025; 80053; 80305; 81001; 82800; 85014; 85018; 85025; 86850; 87086; 87636; C9290; J0690; J1756; J2405

== ENCOUNTER 2024-12-01 19:19 | Emergency (ER) | payer MEDICAID, SELFPAY ==
--- NOTE | 2024-12-01 19:23 | ED_ITS ---
<Statement entered by Tammie Greene DO - 12/01/24 23:37> I was consulted by the COLLEEN, and we discussed the complexity of the problems being addressed. I approved the treatment and management plan for this patient's care in the emergency department, thus performing a substantive portion of the medical decision making. Tammie Greene DO Discharge Plan Disposition Patient Disposition: Home, Self-Care Prescriptions Prescriptions: No Action Vitamin 27 mg iron- 800 mcg tablet 1 tab PO DAILY Patient Comments: TAKE 1 TABLET BY MOUTH EVERY DAY omeprazole magnesium [Prilosec OTC] 20 mg tablet,delayed release (DR/EC) 20 mg PO DAILY hydroxyzine pamoate [Vistaril] 25 mg capsule 25 mg PO BIDP PRN (Reason: anxiety) ibuprofen 400 mg Tablet 800 mg PO Q6HP PRN (Reason: Mild Pain (1-3)) Qty: 40 0RF oxycodone 5 mg Tablet 5 mg PO Q4HP PRN (Reason: Moderate Pain (4-6)) Qty: 24 0RF Referrals Follow up/Referrals: Provider,Referral, MD [Referring, Medical] - See instructions Activity Restrictions/Add. Instructions Additional Instructions/Restrictions: Today you were evaluated in the emergency department diagnosed with a kidney stones. Bilateral nonobstructing nephrolithiasis. Please increase your fluid intake, you may take Tylenol or Motrin for pain. Follow-up with your PCP next week. Return to the ED for any worsening of condition as we discussed Clinical Impressions Clinical Impression: Bilateral nephrolithiasis Instructions Patient Instructions: DI for Kidney Stones Print Language Print Language: Yoruba Discharge ED Provider: Tammie Greene General Adult HPI General Chief complaint: Back Pain/Injury Stated complaint: uti,pain in kidney area Time Seen by Provider: 12/01/24 19:23 History of Present Illness HPI narrative: patient is a 29-year-old female PMHx kidney stones who presented to the ED for complaints of right sided flank pain that radiates to the right lower abdomen and intermittent vaginal pain. She states that she has been tested for STDs multiple times, the last time being last week which was negative. Related Data Home Medications ?Medication ?Instructions ?Recorded ?Confirmed vits no.130-ferrous fum 1 tab PO DAILY Supple ment 10/08/22 12/25/22 27 mg iron-folic acid 800 mcg tablet ( Vitamin) hydroxyzine pamoate 25 mg capsule 25 mg PO BIDP PRN an xiety 12/25/22 12/25/22 (Vistaril) omeprazole magnesium 20 mg 20 mg PO DAILY Acid Reflux 12/25/22 12/25/22 tablet,delayed release (Prilosec OTC) Previous Rx's ?Medication ?Instructions ?Recorded ibuprofen 400 mg tablet 800 mg (2 x 400 mg) PO Q6HP PRN 12/26/22 Mild Pain (1-3) #40 tabs oxycodone 5 mg tablet 5 mg PO Q4HP PRN Moderate Pa in 12/26/22 (4-6) #24 tabs Allergies Allergy/AdvReac Type Severity Reaction Status Date / Time No Known Allergies Allergy Verified 12/17/22 09:24 [facility] Disclaimer: The information contained in this section may have been updated after the patient was seen, as this information can be updated by other users. Medical History Positive urine drug screen THC Recurrent loss Surgical History Hx of section 02/12/16 Failure to progress, CPD Hx of dilation and curettage Family History Other Diabetes Heart attack Hypertension Social History (Updated 12/26/22 @ 00:36 by Arely Nguyen RN) Smoking Status: Never smoker alcohol intake: never substance use type: denies use and marijuana current occupational status: unemployed Travel in the last 8 weeks?: None household members: spouse housing: house marital status: current occupational exposures/hazards: No caffeine: Yes Have you lived/traveled outside [place] in past 30 days?: No Contact w/someone who lives/traveled outside US past 30 days?: No Exposure to someone with infectious disease in past 14 days?: No Do you have a fever (greater than 100.4 F or 38 C)?: No Have you tested positive for COVID-19?: No Exposed to someone with COVID-19 in past 14 days?: No Do you have a sore throat?: No Do you have a cough?: No Do you have any weakness?: No Do you have any diarrhea?: No Are you experiencing any unusual bleeding?: No Do you have any muscle aches/pain?: No Do you have any abdominal pain?: No Are you experiencing loss of taste or smell?: No Other Medical History Have you received the Flu Vaccine for this season: No Have you received the Pneumonia Vaccine: No ROS Obtained: Yes Systems reviewed as appropriate & no additional complaints except as documented Physical Exam General General appearance: alert and in no apparent distress Head Head exam: atraumatic and normocephalic Eye Eye exam: Present normal appearance and PERRL ENT ENT exam: Present normal exam Neck Neck exam: Present normal inspection Chest Chest inspection: Present normal inspection and symmetric chest wall rise; Absent tenderness Respiratory Respiratory exam: Present normal lung sounds bilaterally Cardiovascular Cardiovascular exam: Present regular rate Abdominal Exam Abdominal exam: Present soft and normal bowel sounds; Absent tenderness Extremities Exam Extremities exam: Present normal inspection and full ROM Back Exam Back exam: Present full ROM and CVA tenderness (R) Neurological Exam Neurological exam: Present alert and oriented X3 Psychiatric Psychiatric exam: Present normal affect and normal mood Skin Skin exam: Present warm and dry Medical Decision Making Medical Records Screening: Per USPSTF and CDC recommendations, given the prevalence of disease in our region, it is our hospital?s policy to screen for HIV and viral Hepatitis for all patients aged 18 and over and those with ongoing risk factors. Aakash Inquiry Pt receiving controlled substance: No Vital Signs: 12/01/24 19:31 Temperature 97.6 F Temperature Source Oral Pulse Rate [Right Radial] 85 Respiratory Rate 16 Blood Pressure [Right Arm] 131/91 H Blood Pressure Mean [Right Arm] 104 Blood Pressure Position [Right Arm] Sitting 02 Sat by Pulse Oximetry 100 Oxygen Delivery Method Room Air Lab Data Lab Results 12/01/24 19:47: WBC 9.2, RBC 5.07, Hgb 12.8, Hct 39.3, MCV 77.5 L, MCH 25.2 L, MCHC 32.6, RDW 14.5, Plt Count 244, MPV 10.7 H, Neut % (Auto) 60.7, Lymph % (Auto) 28.4, [place] % (Auto) 6.4, Eos % (Auto) 3.6, Baso % (Auto) 0.7, Neut # (Auto) 5.6, Lymph # (Auto) 2.6, [place] # (Auto) 0.6, Eos # (Auto) 0.3, Baso # (Auto) 0.1, Sodium 138, Potassium 3.5, Chloride 104, Carbon Dioxide 28, Anion Gap 9.5, BUN 15, Creatinine 0.80, Estimated Creat Clear 117, Estimated GFR 86, Est GFR ( Amer) 104, Glucose 70 L, Calcium 9.5, Total Bilirubin 0.4, AST 24, ALT 9 L, Alkaline Phosphatase 48, Total Protein 9.0 H D, Albumin 4.9, G lobulin 4.1 H, Albumin/Globulin Ratio 1.2, Urine Color Yellow, Urine Appearance Slightly cloudy, Urine pH 6.0, Ur Specific [place] 1.020, Urine Protein Negative, Urine Glucose (UA) Negative, Urine Ketones Negative, Urine Blood 3+ A, Urine Nitrate Negative, Urine Bilirubin Negative, Urine Urobilinogen 0.2, Ur Leukocyte Esterase Negative, Urine RBC 20-50, Urine WBC Occasional, Ur Squamous Epith Cells 3-5, Urine Bacteria Trace, Urine HCG, Qual Negative 12/01/24 19:47 12/01/24 19:47 Orders (Tests/Meds): ED MEDICATIONS Discontinued Medications Generic Name Dose Route Start Last Admin Trade Name Freq PRN Reason Stop Dose Admin Sodium Chloride 1,000 mls @ 999 mls/hr 12/01/24 19:34 12/01/24 19:50 Sod Chlor 0.9% 1000ml Bag IV 12/01/24 20:34 999 mls/hr .Q1H1M ONE Administration Ketorolac Tromethamine 15 mg 12/01/24 19:34 12/01/24 20:20 Ketorolac 30mg/Ml Vial IV 12/01/24 19:35 15 mg ONCE ONE Administration ORDERS Category Date Time Status CT abdomen pelvis wo con Stat Cat Scan 12/01/24 19:42 Completed CBC w/Auto Diff [Complete Blood Count Auto Diff] Stat Lab 12/01/24 19:47 Completed CMP [Comprehensive Metabolic Panel] Stat Lab 12/01/24 19:47 Completed Urinalysis and Microscopic Stat Lab 12/01/24 19:47 Completed Urine , HCG Qual. Stat Lab 12/01/24 19:47 Completed Medical Decision Narrative: In summary, patient is a 29-year-old female PMHx kidney stones who presented to the ED for complaints of right sided flank pain that radiates to the right lower abdomen and intermittent vaginal pain. She states that she has been tested for STDs multiple times, the last time being last week which was negative. She does not want tested again today. She states she was recently treated for a fungal infection, does not currently have the symptoms at this time. Denies hematuria. Denies fever, chills, chest pain, shortness of breath, nausea, vomiting. Upon initial evaluation patient is alert, oriented and cooperative. She is hemodynamically stable. Physical exam remarkable for right CVA tenderness, right-sided abdominal tenderness. Differential diagnosis include renal calculi, pyelonephritis, sepsis, UTI, among others. CBC unremarkable for any leukocytosis, stable H&H. CMP unremarkable for any actionable abnormality. Urinalysis remarkable for 3+ blood, negative nitrate, negative leuks. hCG negative. CT of the abdomen and pelvis remarkable for bilateral nonobstructing nephrolithiasis. Small volume fluid noted in pelvis, patient is on menstrual cycle. Upon reassessment, patient states her condition has improved, pain has resolved. Given this and findings during workup, feel that patient is safe to be discharged home at this time. We discussed increasing fluid intake, taking acetaminophen and ibuprofen [id number] for pain relief. Discussed following up with PCP. We discussed return precautions to the ED and patient verbalized understanding. She was hemodynamically stable and ambulatory in the ED. Critical Care Critical Care Time Critical Care Time: No
--- OUTSIDE RECORDS SUMMARY | 2024-12-01 19:26 | XMS_ITS | Encounter Summary ---
Author Organization Healthcare Address [address] [place] [address] Care Team Providers Care Wrapper Sheeter Name Role Phone Lawrence Hernandez MD Primary Care Provider [phone] Encounter Details Date Type Department Care Team (Late st Contact Info) Description 10/27/2024 Telephone Obstetrics & Gynecology [address] [place] [address] Zeenat Chiang APRN, KOBE [address] [place] [address] Social History Tobacco Use Types Packs/Day Years Used Date Smoking Tobacco: Never Assessed Comments Unknown Sex and Gender Information Value Date Recorded Sex Assigned at Not on file Legal Sex Female 8:54 PM EDT Gender Identity Not on file Sexual Orientation Not on file documented as of this encounter Miscellaneous Notes * Telephone Encounter - Maria Isabel Shook RN - 10/27/2024 4:15 PM EDT RN returned pt call. Pt scheduled for appt. * Telephone Encounter - Suha Valladares - 10/27/2024 2:57 PM EDT Clinical Concern/Question Reason for Call: Pt is returning call. Please call. Best contact number: [phone] (mobile) Optimal time of day to reach caller: ANYTIME Additional comments/information from caller: Not Applicable Note: Please do not reply to this message. Follow-up communication and further actions as a result of this message need to be communicated with the patient directly, if the patient is not active onMyChart. If the patient is active on MyChart, they will receive notification of the communication/outcome via MyChart. documented in this encounter Plan of Treatment Not on file documented as of this encounter Visit Diagnoses Not on filedocumented in this encounter Care Teams Wrapper Sheeter Relationship Specialty Start Date End Date Lawrence Hernandez MD [address] [place] [address] PCP - General 12/02/20 documented as of this encounter
--- OUTSIDE RECORDS SUMMARY | 2024-12-01 19:26 | XMS_ITS | Clinical Summary ---
Author Organization [facility] Address [address] [id number] Care Team Providers Care Livestock Buyer Name Role Phone Lawrence Hernandez MD Primary Care Provider [phone] Allergies No known active allergies Encounters Date Type Department Care Team Description 10/27/2024 Telephone Obstetrics & Gynecology [address] [place] [address] Zeenat Chiang APRN, DNP 10/25/2024 Telephone Obstetrics & Gynecology [address] [place] [address] Zeenat Chiang APRN, DNP [facility] - Patient Message 09/20/2024 Telephone Obstetrics & Gynecology [address] [place] [phone] None, None [facility] Clinical Concern/Question from Last 3 Months Social History Tobacco Use Types Packs/Day Years Used Date Smoking Tobacco: Never Assessed Comments Unknown Sex and Gender Information Value Date Recorded Sex Assigned at Not on file Legal Sex Female 8:54 PM EDT Gender Identity Not on file Sexual Orientation Not on file Last Filed Vital Signs Vital Sign Reading Time Taken Comments Blood Pressure 111/73 12/02/2020 11:22 AM EDT Pulse 92 12/02/2020 11:22 AM EDT Temperature 36.8 C (98.3 F) 12/02/2020 11:22 AM EDT Respiratory Rate 20 12/02/2020 11:22 AM EDT Oxygen Saturation 96% 12/02/2020 11:22 AM EDT Inhaled Oxygen Concentration - - Weight 75.3 kg (166 lb) 12/02/2020 11:22 AM EDT Height 160 cm (5' 3 ) 12/02/2020 11:22 AM EDT Body Mass Index 29.41 12/02/2020 11:22 AM EDT Plan of Treatment Health Maintenance Due Date Last Done Comments [facility]-Depression Screening 1997 [facility]-Infant/Child/Adol SDOH Screenings 1997 [facility]-Varicella Vaccines (2 of 2 - 2-dose childhood series) 08/18/2001 05/26/2001 HPV Vaccines (1 - 3-dose series) 2012 [facility]- SDOH Screenings 2015 [facility]-Adult SDOH Screenings 2015 [facility]-Pap Smear 2018 [id number] Vaccine ( season) 2024 02/12/2021, 01/16/2021 [facility]-Influenza Vaccine (Season Ended) 2025 [facility]-DTaP,Tdap,and Td Vaccines (7 - Td or Tdap) 04/21/2028 04/21/2018, 07/23/2008, 04/25/2002, Additional history exists [facility]-Zoster Vaccines (1 of 2) 2047 05/26/2001 [facility]-Hepatitis B Vaccines Completed 998, 1997, 1997 [facility]-HIB Vaccines Completed 04/25/2002, 07/1997, 1997, Additional history exists [facility]-IPV Vaccines Completed 04/25/2002, , 1997, Additional history exists [facility]-Hepatitis A Vaccines Aged Out 05/16/2018, 09/13 No longer eligible based on patient's age to complete this topic [facility]-HIV Screening Completed 12/02/2020 [facility]-Hepatitis C Screening Completed 04/25/2024, [facility]-Pneumococcal Vaccine: Pediatrics (0 to 5 Years) and At-Risk Patients (6 to 49 Years) Aged Out No longer eligible based on patient's age to complete this topic [facility]-Rotavirus Vaccines Aged Out No lo nger eligible based on patient's age to complete this topic Procedures Procedure Name Priority Date/Time Associated Diagnosis Comments HEPATITIS C ANTIBODY - ED W/REFLEX TO HCV QUANT PCR STAT 12/02/2020 12:04 PM EDT HIV 1/2 ANTIBODY/ANTIGEN SCREEN WITH REFLEX TO HIV I/II DIFFERENTIATION STAT 12/02/2020 12:04 PM EDT from Last 3 Months or Most Recently Relevant to Health Maintenance Results * HIV 1 & 2 Antibody/Antigen Screen (12/02/2020 12:04 PM EDT) HIV 1 & 2 Antibody/Anti gen Screen Nonreactive Nonreactive 12/02/2020 1:54 PM EDT [facility] Blood Venous blood specimen / Unknown Venipuncture / Unknown 12/02/2020 12:04 PM EDT 12/02/2020 12:14 PM EDT Mono Painting MD LAB BLOOD ORDERABLES Final Res ult Performing Organization Address City/[facility] Co de Phone Number [facility] [address] [place] [address] * [place] Hepatitis C Antibody (12/02/2020 12:04 PM EDT) Hepatitis C Antibody Negative Negative 12/02/2020 1:54 PM EDT [facility]ARE [facility] Blood Venous blood specimen / Unknown Venipuncture / Unknown 12/02/2020 12:04 PM EDT 12/02/2020 12:14 PM EDT Mono Painting MD LAB BLOOD ORDERABLES Final Res ult Performing Organization Address City/[facility]/ZIP Co de Phone Number [facility] [address] [place] [address] from Last 3 Months or Most Recently Relevant to Health Maintenance Insurance [facility] MEDICAID Care Teams Livestock Buyer Relationship Specialty Start Date End Date Lawrence Hernandez MD [address] [place] [address] PCP - General 12/02/20
--- OUTSIDE RECORDS SUMMARY | 2024-12-01 19:26 | XMS_ITS | Encounter Summary ---
Author Organization [facility] Address [address] [id number] Care Team Providers Care Senior Credit Officer Name Role Phone Lawrence Hernandez MD Primary Care Provider [phone] Reason for Visit * Reason Onset Date Comments HCN - Patient Message 10/25/2024 Encounter Details Date Type Department Care Team (Late st Contact Info) Description 10/25/2024 Telephone Obstetrics & Gynecology [address] [place] [address] Zeenat Chiang APRN, [facility] [address] [place] [address] HCN - Patient Message Social History Tobacco Use Types Packs/Day Years Used Date Smoking Tobacco: Never Assessed Comments Unknown Sex and Gender Information Value Date Recorded Sex Assigned at Not on file Legal Sex Female 8:54 PM EDT Gender Identity Not on file Sexual Orientation Not on file documented as of this encounter Miscellaneous Notes * Telephone Encounter - Maria Isabel Shook RN - 10/27/2024 4:16 PM EDT Pt rescheduled. * Telephone Encounter - Maria Isabel Shook RN - 10/27/2024 2:55 PM EDT LMOM---pt DIRECTOR BUILDING. Not able to do IUD insertion and annual at same time * Telephone Encounter - Jeremias Hernandez - 10/27/2024 2:40 PM EDT Status Update Call #2 2nd call regarding the status of the initial request. Best contact number: [phone] (mobile) Optimal time of day to reach caller: ANYTIME Additional comments/information from caller: pt states that she has been waiting a whole week for acall back and she hasn't heard from anyone pt is asking for a call back please Note: Please do not reply to this message. Follow-up communication and further actions as a result of this message need to be communicated with the patient directly, if the patient is not active onMyChart. If the patient is active on MyChart, they will receive notification of the communication/outcome via MyChart. * Telephone Encounter - Suha Valladares - 10/26/2024 3:10 PM EDT Status Update Call #4 4th call regarding the status of the initial request. Best contact number: [phone] (mobile) Optimal time of day to reach caller: ANYTIME Additional comments/information from caller: Pt is calling back about this apt. Please call. Note: Please do not reply to this message. Follow-up communication and further actions as a result of this message need to be communicated with the patient directly, if the patient is not active onMyChart. If the patient is active on MyChart, they will receive notification of the communication/outcome via MyChart. * Telephone Encounter - Florencia Uribe - 10/25/2024 3:42 PM EDT Status Update Call #3 3rd call regarding the status of the initial request. Best contact number: [phone] (mobile) Optimal time of day to reach caller: ANYTIME Additional comments/information from caller: Pt calling back about this, asking to r/s appt. Pleasecall. Note: Please do not reply to this message. Follow-up communication and further actions as a result of this message need to be communicated with the patient directly, if the patient is not active onMyChart. If the patient is active on MyChart, they will receive notification of the communication/outcome via MyChart. * Telephone Encounter - Jeremias Hernandez - 10/25/2024 2:10 PM EDT Status Update Call #2 2nd call regarding the status of the initial request. Best contact number: [phone] (mobile) Optimal time of day to reach caller: ANYTIME Additional comments/information from caller: Please call back back to rs appt please Note: Please do not reply to this message. Follow-up communication and further actions as a result of this message need to be communicated with the patient directly, if the patient is not active onMyChart. If the patient is active on MyChart, they will receive notification of the communication/outcome via [employer]. * Telephone Encounter - Florencia Uribe - 10/25/2024 10:10 AM EDT Clinical Concern/Question Reason for Call: Pt calling back to r/s her annual and IUD placed. Asking for Wednesday or Wednesday at 12:00. Please call. Best contact number: [phone] Optimal time of day to reach caller: ANYTIME Additional comments/information from caller: None Note: Please do not reply to this message. Follow-up communication and further actions as a result of this message need to be communicated with the patient directly, if the patient is not active onMyChart. If the patient is active on MyChart, they will receive notification of the communication/outcome via [employer]. documented in this encounter Plan of Treatment Not on file documented as of this encounter Visit Diagnoses Not on filedocumented in this encounter Care Teams Senior Credit Officer Relationship Specialty Start Date End Date Lawrence Hernandez MD [address] [place] [address] PCP - General 12/02/20 documented as of this encounter
[2024-12-01 19:31] VITALS: BP 131/91; PULSE 85; RESP 16; TEMP 36.4; O2SAT 100; BMI 27.4
--- NOTE | 2024-12-01 19:42 | CT_ITS ---
PROCEDURE INFORMATION: Exam: CT Abdomen And Pelvis Without Contrast Exam date and time: 12/01/2024 8:20 PM Age: 29 years old Clinical indication: Abdominal pain; Flank; Right; Additional info: R flank pain TECHNIQUE: Imaging protocol: Computed tomography of the abdomen and pelvis without contrast. Radiation optimization: All CT scans at this facility use at least one of these dose optimization techniques: automated exposure control; mA and/or kV adjustment per patient size (includes targeted exams where dose is matched to clinical indication); or iterative reconstruction. COMPARISON: US OB BIOPHYSICAL PROFILE 11/19/2022 2:24 PM FINDINGS: Liver: Unremarkable. No mass. Gallbladder and biliary ducts: Unremarkable. No calcified stones. No ductal dilation. Pancreas: Unremarkable. Spleen: Unremarkable. No splenomegaly. Adrenal glands: Normal. No mass. Kidneys and ureters: Bilateral nephrolithiasis is demonstrated. Largest calculus in the lower pole right kidney measures 9 mm on coronal image 44. No visualized renal hydronephrosis. No visualized obstructing ureteral calculus. The visualized kidneys appear otherwise unremarkable. Stomach and bowel: Unremarkable. No obstruction, ileus or definite inflammation. Appendix: The visualized appendix appears unremarkable. Intraperitoneal space: Small volume of fluid identified in the pelvic cul-de-sac. No significant intraperitoneal well-defined fluid collection or air identified. Vasculature: Calcifications in the pelvis, most compatible with phleboliths. Lymph nodes: No enlarged lymph nodes. Urinary bladder: Urinary bladder appears small in size, limiting further assessment. Reproductive: Unremarkable as visualized. Bones/joints: No acute bony abnormality. No significant degenerative changes. Soft tissues: Unremarkable. IMPRESSION: 1. Bilateral nonobstructing nephrolithiasis. 2. Small volume free fluid within pelvis cul-de-sac.
[2024-12-01] MEDS: 0.9 % SODIUM CHLORIDE 1000ML 1,000 ML 999 ML IV (19:50)
[2024-12-01 19:52] LABS: Microscopic, Urine URINE MICROSCOPIC (MICROSCOPIC)
[2024-12-01 19:53] LABS: Basophils # 0.1 K/mm3 (0-0.2); Basophils % 0.7 % (0.1-2.0); Eosinophils # 0.3 Kmm3 (0.0-0.4); Eosinophils % 3.6 % (0.1-12.0); Hematocrit 39.3 % (37.0-47.0); Hemoglobin 12.8 g/dL (12.2-16.2); Immature Granulocytes # 0.02 10^3uL; Immature Granulocytes % 0.2 %; Lymphocytes # 2.6 K/mm3 (0.7-4.5); Lymphocytes % 28.4 % (10-50); Mean Corpuscular HGB Conc 32.6 g/dL (31.8-35.4); Mean Corpuscular Hemoglobin 25.2 pg (27.0-31.2); Mean Corpuscular Volume 77.5 fl (81-99); Mean Platelet Volume 10.7 fl (7.4-10.4); Monocytes # 0.6 K/mm3 (0.1-1.0); Monocytes % 6.4 % (1.7-9.3); Neutrophils # 5.6 K/mm3 (1.8-7.8); Neutrophils % 60.7 % (37.0-80.0); Nucleated Red Blood Cells # 0 10^3/uL; Nucleated Red Blood Cells % 0 %; Platelet Count 244 K/mm3 (142-424); Red Blood Count 5.07 M/mm3 (4.20-5.40); Red Cell Distribution Width 14.5 % (11.5-17.5); White Blood Count 9.2 K/mm3 (4.8-10.8)
[2024-12-01 20:07] LABS: Bilirubin,Urine Negative (Negative); Blood, Urine 3+ (Negative); Color,Urine YELLOW (Yellow); Glucose,Urine (UA) Negative (Negative); Ketones,Urine Negative (Negative); Leukocyte Esterase,Urine Negative (Negative); Nitrate,Urine Negative (Negative); Protein,Urine Negative (Negative); Urobilinogen,Urine 0.2 EU/dl (0.2)
[2024-12-01 20:08] LABS: Urine Pregnancy, HCG Qual. Negative (Negative)
[2024-12-01 20:13] LABS: Albumin Level 4.9 g/dl (3.5-5.0); Chloride 104 mmol/L (98-107); Sodium 138 mmol/L (136-145)
[2024-12-01 20:14] LABS: Potassium 3.5 mmoL/L (3.5-5.1)
[2024-12-01 20:16] LABS: Alanine Aminotransferase 9 U/L (12-78); Albumin/Globulin Ratio 1.2 (1.1-1.8); Alkaline Phosphatase 48 U/L (38-126); Anion Gap 9.5 mEq/L (5-15); Appearance,Urine Slightly Cloudy (Clear); Aspartate Amino Transferase 24 U/L (14-36); Bilirubin,Total 0.4 mg/dl (0.2-1.3); Blood Urea Nitrogen 15 mg/dl (7-17); Carbon Dioxide 28 mmol/L (22.0-30.0); Creatinine Clearance Estimated 117 mL/min (50-200); Estimated Glomerular Filt Rate 86 ml/min (>60); GFR (African American) 104 ML/MIN (>60); Globulin 4.1 g/dL (1.3-3.2)
[2024-12-01 20:17] LABS: Calcium 9.5 mg/dl (8.4-10.2); Glucose 70 mg/dl (74-100)
[2024-12-01 20:18] LABS: RBC,Urine 20-50 #/hpf (0-3); WBC,Urine Occasional #/hpf (0-3)
[2024-12-01 20:19] LABS: Bacteria,Urine Trace /lpf
[2024-12-01] MEDS: KETOROLAC 30MG/ML VIAL 15 MG IV (20:20)
[2024-12-01 22:09] VITALS: BP 128/73; PULSE 88; RESP 16; TEMP 36.8; O2SAT 99
== END 2024-12-01 22:08 | disposition home or self-care (01) ==
PROVIDERS: Nurse Practitioner; Emergency Provider Emergency Medicine; PCP Nurse Practitioner
DX: N20.0 Calculus of kidney (principal)
CPT/HCPCS: 74176; 80053; 81001; 81025; 85025; 96361; 96374; 99284; J1885; J7030

== ENCOUNTER 2024-12-21 12:02 | Outpatient (CLI) | payer MEDICAID, SELFPAY ==
[2024-12-21 13:11] LABS: Hemoglobin A1C 5.1 % (4.0-6.0)
== END 2024-12-21 23:59 | disposition home or self-care (01) ==
LOC: LAB 12:02
PROVIDERS: PCP Nurse Practitioner; Visit Provider Obstetrics & Gynecology
DX: B37.31 Acute candidiasis of vulva and vagina (principal)
CPT/HCPCS: 36415; 83036